=== PATIENT | female | born 1990 | race Caucasian/White ===

== ENCOUNTER 2021-01-25 17:53 | Inpatient (IN) | payer BC ==
[~2021-01-25] VITALS: Ht 167.6 cm; Wt 95.3 kg
[~2021-01-25 17:53] MED LIST: ZOFRAN ODT4 MG PO
--- NOTE | 2021-01-25 20:10 | NUR ---
COVID swab oibtained and taken to lab.
[2021-01-25] MEDS ORDERED: PRENATAL VITAM1 EACH PO (20:44)
--- NOTE | 2021-01-26 04:48 | PR ---
[facility] [address] [place], [place] [address] Signed Progress Notes IP Datetime Report Generated by CPN: 01/26/2021 04:48 PROGRESS NOTES: [id number] Impression: Normal Progression of Labor; Reassuring Heart Rate Procedures: Sterile Vag Exam Plan: Anticipate Vaginal Delivery Informed Consent Obtain: Vaginal Delivery VITAL SIGNS: [id number] Vital Signs: Reviewed; Within Normal Limits EXAM: [id number] Dilatation: 9.0 Effacement: 100 Station: 0 Contractions: q 2 min MEMBRANES: [id number] ROM Note: some bloody show noted Comments: Pt seen and examined. Doing well and now with remaining tiny amount of anterior lip that is easily reducible. Pt reporting strong urge to push w/ contractions. Discussed 2nd stage of labor, adequate pelvis, EFW, and anticipated . All questions answered. Anticipate soon FETUS A: [id number] FHR Baseline: 140 Variability: Moderate 6-25bpm Accelerations: None Decelerations: None FHR Category: Category I Presentation: Vertex Comments on Fetus A: No evidence of metabolic acidosis FETUS B: [id number] Signing Physician: Anjali Demarco DO Copies: ~ *Electronically Signed* 01/26/21 0448 ANJALI DEMARCO DO PATIENT NAME: DRISS JARA PROGRESS NOTE DATE OF : 89 PHYSICIAN: NAJALI DEMARCO DO RPT #: [id number] REPORT IS CONFIDENTIAL AND NOT TO BE RELEASED WITHOUT AUTHORIZATION
--- NOTE | 2021-01-26 06:04 | PR ---
[facility] [address] [place], [place] [address] Signed Progress Notes IP Datetime Report Generated by CPN: 01/26/2021 06:03 PROGRESS NOTES: [id number] Impression: Normal Progression of Labor Procedures: Sterile Vag Exam Plan: Continue Present Management; Anticipate Vaginal Delivery Informed Consent Obtain: Vaginal Delivery VITAL SIGNS: [id number] Vital Signs: Reviewed; Within Normal Limits EXAM: [id number] Dilatation: 10.0 Effacement: 100 Station: 0 Contractions: q 2 min MEMBRANES: [id number] ROM Note: some bloody show noted Comments: Slow progress w/ pushing despite good efforts. Vertex LOP w/ asynclitism noted. Multiple position changes have been attempted. Will attempt hands/knees. Again reviewed reassuring FHT, EFW, and adequate pelvis and recommend continued pushing efforts. Pt understands and agrees FETUS A: [id number] FHR Baseline: 140 Variability: Moderate 6-25bpm Accelerations: None Decelerations: None FHR Category: Category I Presentation: Vertex Comments on Fetus A: No evidence of metabolic acidosis FETUS B: [id number] Signing Physician: Anjali Demarco DO Copies: ~ *Electronically Signed* 01/26/21602 ANJALI DEMARCO DO PATIENT NAME: DRISS JARA PROGRESS NOTE DATE OF : 89 PHYSICIAN: ANJALI DEMARCO DO RPT #: [id number] REPORT IS CONFIDENTIAL AND NOT TO BE RELEASED WITHOUT AUTHORIZATION
--- NOTE | 2021-01-26 06:56 | PR ---
[facility] [address] [place], [place] [address] Signed Progress Notes IP Datetime Report Generated by CPN: 01/26/2021 06:56 PROGRESS NOTES: [id number] Impression: Arrest of Dilatation/Descent Procedures: Sterile Vag Exam Plan: Deliver- Section Informed Consent Obtain: Section Delivery; Risks, Benefits and Alternatives Discussed VITAL SIGNS: [id number] Vital Signs: Reviewed; Within Normal Limits EXAM: [id number] Dilatation: 10.0 Effacement: 100 Station: 0 Contractions: q 2 min MEMBRANES: [id number] ROM Note: some bloody show noted Comments: Pt has been pushing over two hours with no descent noted w/ persistant LOT position w/ asynclitism. FHT reassuring throughout, although mild tachycardia now noted. Multiple position changes have been attempted as well as attempted internal rotational maneuvers. Reviewed option for continued pushing vs primary LTCS w/ pt and pt and desire primary LTCS. Risks/benefits and alternatives discussed. Ancef 2 g and Azithromycin 500mg IV preop ordered. OR crew and Dr. Wolfe notified and en route. Consents signed. FETUS A: [id number] FHR Baseline: 140 Variability: Moderate 6-25bpm Accelerations: None Decelerations: None FHR Category: Category I Presentation: Vertex Comments on Fetus A: No evidence of metabolic acidosis FETUS B: [id number] Signing Physician: Anjali Demarco DO Copies: *Electronically Signed* 01/26/21 0656 ANJALI DEMARCO DO PATIENT NAME: DRISS JARA PROGRESS NOTE DATE OF : 89 PHYSICIAN: ANJALI DEMARCO DO RPT #: [id number] REPORT IS CONFIDENTIAL AND NOT TO BE RELEASED WITHOUT AUTHORIZATION [address] [place] [address] Signed ~ *Electronically Signed* 01/26/21 0656 ANJALI DEMARCO DO PATIENT NAME: DRISS JARA PROGRESS NOTE DATE OF : 89 PHYSICIAN: ANJALI DEMARCO DO RPT #: [id number] REPORT IS CONFIDENTIAL AND NOT TO BE RELEASED WITHOUT AUTHORIZATION
--- NOTE | 2021-01-26 09:14 | NUR ---
01/26/21 0914 Demarco,Stacie Owusu 0836: FBC RN ASSISTING PATIENT AND TO BREASTFEED BABY. 0905: REPORT GIVEN TO FBC RN.
--- NOTE | 2021-01-27 16:29 | PR ---
[facility] [address] [facility] [place], [place] [address] Signed PP Progress Notes Datetime Report Generated by CPN: 01/27/2021 16:29 SUBJECTIVE: [id number] Pain: Within Normal Limits Nausea/Vomiting: Denies Flatus: No Vital Signs: [id number] Vital Signs: Reviewed; Within Normal Limits EXAM: Ongoing Cardiovascular: Normal Respiratory: Normal Lochia: Normal CVA Tenderness: Normal Extremities: Normal Incision: Normal Progress: Normal Exam Comments: Fundus firm U-2 nontender IMPRESSION/PLAN/PROCEDURES: [id number] Impression: Normal Progression Plan: Continue Present Management Progress Notes: Pt seen and examined. Doing well. Ambulating, voiding, and tolerating full diet. Pain and lochia minimal. well. No fevers/chills or other concerns. Anticipate d/c home tomorrow. Hgb 11.1 Signing Physician: Anajli Demarco DO Copies: ~ *Electronically Signed* 01/27/21 1629 ANJALI DEMARCO DO PATIENT NAME: DRISS JARA PROGRESS NOTE DATE OF : 89 PHYSICIAN: ANJALI DEMARCO DO [facility] #: [id number] REPORT IS CONFIDENTIAL AND NOT TO BE RELEASED WITHOUT AUTHORIZATION
--- NOTE | 2021-01-28 12:32 | PR ---
[facility] [address] [facility] [place], [place] [address] Signed PP Progress Notes Datetime Report Generated by CPN: 01/28/2021 12:32 SUBJECTIVE: [id number] Pain: Within Normal Limits Nausea/Vomiting: Denies Flatus: Yes Bowel Movement: No Vital Signs: [id number] Vital Signs: Reviewed; Within Normal Limits EXAM: Ongoing Cardiovascular: Normal Respiratory: Normal Abdomen/Uterus: Normal Lochia: Normal Vulva/Perineum: Not Done Breasts: Not Done CVA Tenderness: Normal Extremities: Normal Incision: Normal Progress: Normal Exam Comments: Fundus firm U-2 nontender Incision healing well IMPRESSION/PLAN/PROCEDURES: [id number] Impression: Normal Progression Plan: Remove Arlin; Discharge Progress Notes: Pt seen and examined. Doing well. Ambulating, voiding, and tolerating full diet. Pain and lochia minimal. well. No fevers/chills or other concerns. Desires d/c home. Reviewed d/c instructions in detai. Signing Physician: Anjali Demarco DO Copies: ~ *Electronically Signed* 01/28/21 1232 ANJALI DEMARCO DO PATIENT NAME: DRISS JARA PROGRESS NOTE DATE OF : 89 PHYSICIAN: ANJALI DEMARCO DO RPT #: [id number] REPORT IS CONFIDENTIAL AND NOT TO BE RELEASED WITHOUT AUTHORIZATION
== END 2021-01-28 14:07 | disposition home or self-care (01) | DRG 788 ==
LOC: FBCO 17:53 → FBC 19:10
PROVIDERS: ADMIT Obstetrics & Gynecology; ATTEND Obstetrics & Gynecology
PROC: 10H073Z Insertion of Monitoring Electrode into Products of Conception, Via Natural or Artificial Opening (ICD-10-PCS; 2021-01-26)
PROC: 10H07YZ Insertion of Other Device into Products of Conception, Via Natural or Artificial Opening (ICD-10-PCS; 2021-01-26)
PROC: 10D00Z1 Extraction of Products of Conception, Low, Open Approach (ICD-10-PCS; principal; 2021-01-26 07:23)
DX: O36.63X0 Maternal care for excessive fetal growth, third trimester, not applicable or unspecified (principal); O62.1 Secondary uterine inertia; Z3A.37 37 weeks gestation of pregnancy; Z37.0 Single live birth; Z20.822 Contact with and (suspected) exposure to COVID-19; O77.0 Labor and delivery complicated by meconium in amniotic fluid; Z79.899 Other long term (current) drug therapy
CPT/HCPCS: 01961; 76942; 85027; A9270; C9803; J0456; J0690; J1100; J1650; J1885; J2250; J2274; J2370; J2405; J2590; J2795; J3010; J3105; J7060; J7121; U0003